=== PATIENT | male | born 1990 | race Caucasian/White ===

== ENCOUNTER 2019-03-10 02:12 | Emergency (ER) | payer SELFPAY ==
[2019-03-10] MEDS: IBUPROFEN 600 MG TAB PO (04:09)
[2019-03-10] MEDS: CIPROFLOXACIN HCL OTIC DROP 0.25 ML RIGHT EAR (04:13)
== END 2019-03-10 04:37 | disposition home or self-care (01) ==
LOC: FTE 02:12
DX: H60.501 Unspecified acute noninfective otitis externa, right ear (principal)
CPT/HCPCS: 99283